=== PATIENT | male | born 1990 | race Caucasian/White ===

== ENCOUNTER 2022-03-11 17:53 | Emergency (ER) | payer BC ==
[2022-03-11] MEDS ORDERED: Sodium Chloride 0.9% 1,000 ML IV ONE (19:55)
[2022-03-11 20:40] LABS: BLOOD UREA NITROGEN,BUN 14 mg/dL (7.0-18.0); CARBON DIOXIDE,CO2 28.3 mmol/L (21.0-32.0); CHLORIDE,CL 102 mmol/L (98-107); GLUCOSE RANDOM 92 mg/dL (74-106); LIPASE 57 U/L (73-393); POTASSIUM,K 4.1 mmol/L (3.5-5.1); SODIUM,NA 140 mmol/L (136-148)
[2022-03-11] MEDS ORDERED: Iopamidol 755 MG/ML 500 ML Multipack Bottle IVPUSH STA (21:26)
[2022-03-11 22:20] VITALS: BP 137/81; PULSE 88
== END 2022-03-11 22:15 | disposition home or self-care (01) ==
LOC: MW.ED 17:53
DX: I88.0 Nonspecific mesenteric lymphadenitis (principal); Z20.822 Contact with and (suspected) exposure to COVID-19
CPT/HCPCS: 36415; 74177; 80053; 81003; 83690; 84484; 85025; 87635; 99284; J7030; Q9967; U0002

== ENCOUNTER 2023-07-30 20:33 | Emergency (ER) | payer BC ==
[2023-07-30] MEDS ORDERED: Lidocaine 1% PF 2 ML SDV INJECT ONE (21:32)
[2023-07-30] MEDS ORDERED: ceFAZolin 1 GM Vial IM ONE (21:32)
[2023-07-30] MEDS ORDERED: Diphtheria,Pertussis(Acell),Tetanus Vaccine 0.5 ML Syringe IM ONE (21:44)
[2023-07-30] MEDS ORDERED: Bacitracin Oint 1 GM U/D Packet TOP STA (22:05)
[2023-07-30 22:28] VITALS: BP 122/77; PULSE 63
== END 2023-07-30 22:28 | disposition home or self-care (01) ==
LOC: MW.ED 20:33
DX: S62.636B Displaced fracture of distal phalanx of right little finger, initial encounter for open fracture (principal); Z23 Encounter for immunization; W23.1XXA Caught, crushed, jammed, or pinched between stationary objects, initial encounter; Y99.0 Civilian activity done for income or pay
CPT/HCPCS: 12002; 73140; 90471; 90715; 96372; 99283; J0690; J3490